=== PATIENT | male | born 1940 | race Caucasian/White ===

== ENCOUNTER 2020-08-26 10:16 | Outpatient (REF) | payer MEDICARE, SELFPAY ==
[2020-08-26 13:07] LABS: Hematocrit 35.5 % (42-52); Hemoglobin 11.2 g/dl (14.0-18.0); Mean Corpuscular HGB Conc 31.5 g/dl (31.0-36.0); Mean Corpuscular Hemoglobin 27.8 pg (27.0-33.0); Mean Corpuscular Volume 88.1 fL (80-98); Mean Platelet Volume 11.1 fL (9.4-12.4); Platelet Count 242 X10*3/uL (160-400); Red Blood Count 4.03 X10*6/uL (4.60-5.80); Red Cell Distribution Width 17.7 % (11.0-16.0); White Blood Count 4.7 X10*3/uL (4.8-10.8)
[2020-08-26 13:26] LABS: Alanine Aminotransferase 19 U/L (0-40); Albumin Level 4.5 g/dL (3.5-5.0); Alkaline Phosphatase 90 U/L (39-117); Anion Gap 10 (12-20); Aspartate Amino Transferase 18 U/L (5-37); Bilirubin Total 1.5 mg/dL (0.0-1.0); Blood Urea Nitrogen 14 mg/dL (9-16); Calcium 8.9 mg/dL (8.4-10.2); Carbon Dioxide 28 mmol/L (22-29); Chloride 105 mmol/L (96-108); Cholesterol 196 mg/dL; Estimated Glomerular Filt Rate > 60; Glucose Fasting 90 mg/dL (60-99); HDL Cholesterol 32 mg/dL; LDL Cholesterol Calculated 133 mg/dl; Potassium 4.4 mmol/L (3.3-5.1); Sodium 139 mmol/L (135-145); Total Protein 7.1 g/dL (6.5-8.0); Triglycerides 157 mg/dL
[2020-08-26 13:32] LABS: NRBC Pct Auto 2.5 /100WBC (0.0-0.2)
[2020-08-26 14:06] LABS: Band Neutrophils Percent 2 % (3-5); Basophils Percent Manual 1 % (0-1); Eosinophils Absolute Manual 0.2 X10*3/UL (0.0-0.8); Eosinophils Percent Manual 4 % (0-4); Lymphocytes Percent Manual 21 % (20-40); Metamyelocytes Absolute 0.1 X10*3/uL; Metamyelocytes Percent 2 %; Monocytes Absolute Manual 0.1 X10*3/uL (0.0-1.2); Monocytes Percent Manual 2 % (2-11); Neutrophils Absolute Manual 3.3 X10*3/uL (2.2-7.9); Neutrophils Percent Manual 68 % (45-73); Nucleated Red Blood Cells 3 /100WBC (0-0)
[2020-08-26 14:08] LABS: RBC Morphology NOTED
[2020-08-26 14:09] LABS: Hypochromasia 1+ (5-14) /OIF; Ovalocytes 2+ (15-30) /OIF; Platelet Estimate NORMAL (NORMAL); Platelet Morphology Comment NORMAL; Polychromasia 1+ (0-2) /OIF; Tear Drop Cells 1+ (0-2) /OIF
[2020-08-26 14:10] LABS: Estimated Average Glucose 100 mg/dL; Hemoglobin A1c % 5.1 %
== END 2020-08-26 10:17 | disposition home or self-care (01) ==
LOC: HO.MANLDS 10:16
PROVIDERS: PCP Internal Medicine; Visit Provider Physician Assistant
DX: I10 Essential (primary) hypertension (principal); E11.9 Type 2 diabetes mellitus without complications
CPT/HCPCS: 36415; 80053; 80061; 83036; 85007; 85025; 85027

== ENCOUNTER 2021-11-03 15:38 | Outpatient (REF) | payer MEDICARE, SELFPAY ==
[2021-11-03 17:59] LABS: Estimated Average Glucose 103 mg/dL; Hemoglobin A1c % 5.2 %
[2021-11-03 18:25] LABS: Alanine Aminotransferase 18 U/L (0-40); Albumin Level 4.5 g/dL (3.5-5.0); Alkaline Phosphatase 94 U/L (39-117); Anion Gap 12 (12-20); Aspartate Amino Transferase 17 U/L (5-37); Bilirubin Total 1.1 mg/dL (0.0-1.0); Blood Urea Nitrogen 13 mg/dL (9-16); Calcium 8.9 mg/dL (8.4-10.2); Carbon Dioxide 25 mmol/L (22-29); Chloride 104 mmol/L (96-108); Estimated Glomerular Filt Rate > 60; Glucose Random 86 mg/dL (60-115); Sodium 137 mmol/L (135-145)
== END 2021-11-03 15:39 | disposition home or self-care (01) ==
LOC: HO.MANLDS 15:38
PROVIDERS: Visit Provider Internal Medicine
DX: E11.9 Type 2 diabetes mellitus without complications (principal)
CPT/HCPCS: 36415; 80053; 83036

== ENCOUNTER 2022-06-17 10:24 | Outpatient (REF) | payer MEDICARE, SELFPAY ==
[2022-06-17 12:16] LABS: Estimated Average Glucose 103 mg/dL; Hemoglobin A1c % 5.2 %
== END 2022-06-17 10:25 | disposition home or self-care (01) ==
LOC: HO.MANLDS 10:24
PROVIDERS: Visit Provider Internal Medicine
DX: E11.9 Type 2 diabetes mellitus without complications (principal)
CPT/HCPCS: 36415; 83036

== ENCOUNTER 2023-05-25 10:51 | Outpatient (AMB) | payer MEDICARE, SELFPAY ==
--- NOTE | 2023-05-25 11:08 | A.OFFVIS_ITS ---
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 States symptoms have increased in the 6 months. States its worse at night time or with prolong bending of wrist. Denies previous injections. EMG done. States he is not sure if he would like to have surgery. 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 He complains of numbness in the thumb, index, and middle fingers of his left hand. Symptoms intermittent, but daily, worse at night, along with a burning sensation. He says he has some numbness in his right hand as well, but this is less bothersome. He has completed a NCS. He denies any prior treatment options, and says his symptoms have worsened in the last ~6 months. He is unsure if he would like to discuss surgery, [facility] Surgical History (Updated 05/25/23 @ 11:16 by MATTHEW Tate) Hx of tonsillectomy Social History (Updated 05/25/23 @ 11:16 by MATTHEW Tate) Current occupational status: retired and disabled Current occupation: rt hand Review of Systems Const All systems reviewed & are unremarkable except as noted in HPI and below Physical Exam Vital Signs: BMI result Body Mass Index 34.9 Const General: cooperative, healthy appearing and no acute distress Orientation/consciousness: patient oriented x3 HEENT Head: Yes normocephalic and Yes atraumatic Eyes EOM: EOMs intact bilaterally Resp Effort & Inspection: normal respiratory effort and able to speak in complete sentences Cardio Jugular venous distension: no JVD Skin General skin exam: turgor normal Rashes: no rashes Neuro General: patient oriented x3 Extrem Other: Evaluation of Bilateral Upper Extremity: The patient is alert, oriented, and in no acute distress Neuro: Not quite normal sensation i the median nerve distribution of his left hand today in clinic. Normal sensation in the ulnar nerve distribution No thenar or intrinsic wasting Good APB muscle belly firing and good finger cross Vascular: Cap refill brisk ROM: He can make a fist and extend all his digits No locking or catching Skin: No lacerations or abrasions. General: No Ecchymosis. No Erythema or evidence of infection. Nerve Conduction Study: Moderate-severe left carpal tunnel syndrome Mild right carpal tunnel syndrome Dr. Galdamez 03/10/23 Psych Appearance: grossly normal Affect: normal affect Attitude: cooperative Assessment & Plan Assessment & Plan (1) Carpal tunnel syndrome of left wrist: Code(s): G56.02 - Carpal tunnel syndrome, left upper limb (2) Carpal tunnel syndrome of right wrist: Code(s): G56.01 - Carpal tunnel syndrome, right upper limb Plan Assessment & Plan: 1. Left carpal tunnel syndrome, moderate-severe Symptoms intermittent, but daily, worse at night, some persistent numbness/pain I educated him about this condition I discussed operative and non-operative treatment options The patient would like to proceed with surgery The risks and benefits of operative treatment were discussed with the patient and the patient wishes to proceed with surgery. These risks include, but are not limited to risk of damage to blood vessels, nerves, tendons, infection, recurrence, incomplete relief of preoperative symptoms, persistent pain, possible need for further surgery and the risks associated with regional blocks and anesthesia. The plan is to take the patient to the operating room sometime in the next few weeks for the following procedures: 1. Left carpal tunnel release, under local All of the preoperative paperwork including the consent was reviewed today. All the patient's questions were answered. The patient understands that they will be contacted by our hot mill roller soon to schedule this procedure He denies Diabetes, blood thinners, asthma, heart, lung, kidney issues His incoming medical records list him as having Diabetes, but he is not taking any Diabetic medication 2. Right carpal tunnel syndrome, mild Symptoms intermittent & occasional We can discuss treatment when his left side has recovered Scribed for Beverly Rosas MD by Duane Talamantes medical administrative technician, on 05/25/23 at 11:30 AM, EST. Coding Level of Care Code New Pt Level 4 (14500) Diagnoses Carpal tunnel syndrome of left wrist G56.02 Carpal tunnel syndrome of right wrist G56.01
[2023-05-25 11:16] VITALS: BMI 34.9
== END 2023-05-25 11:34 | disposition home or self-care (01) ==
PROVIDERS: PCP Internal Medicine; Visit Provider Orthopaedic Surgery
DX: G56.03 Carpal tunnel syndrome, bilateral upper limbs (principal)
CPT/HCPCS: 99204

== ENCOUNTER → 2023-05-25 10:51 | Outpatient (BNVA) | payer MEDICARE, SELFPAY | PROVIDERS: PCP Internal Medicine; Visit Provider Orthopaedic Surgery | DX: G56.03 Carpal tunnel syndrome, bilateral upper limbs (principal) | CPT/HCPCS: 99202 ==

== ENCOUNTER 2023-07-26 07:19 | Day surgery (SDC) | payer MEDICARE, SELFPAY ==
[2023-07-26 08:31] VITALS: BMI 33.9
--- NOTE | 2023-07-26 09:03 | MHC.SHP ---
Pre-Procedural Eval Section A - 24 Hr Update-Section A only Date of Service: 07/26/23 The patient is an INPATIENT: No Changes since office visit: No Cold of Flu in the past 2 weeks, No New Medical Problems, No Changes in Medication and No Patient answered all questions The patient has been examined within 24 hours of the surgical procedure. The History & Physical has been completed within 30 days and I have reviewed it.: Yes Section B - Complete if H&P > 30 days Chief Complaint: Carpal tunnel syndrome, left upper limb Allergies: Allergies Allergy/AdvReac Type Severity Reaction Status Date / Time SEASONAL ALLERGIES Allergy Intermediate ITCHY EYES Uncoded 05/25/23 11:13 Exam Exam Comment: Left carpal tunnel syndrome Plan Diagnosis/Plan: Unchanged I have reviewed the history and physical and performed a pertinent physical examination on my patient. No changes have occurred unless specified. Time Spent With Patient Time: Total time managing care of this patient today ____ minutes.
--- NOTE | 2023-07-26 09:04 | W.PM.OPN ---
Operative Note Operative Note Date of Service: 07/26/23 Narrative: Preop diagnosis: 1. Left Carpal tunnel syndrome Postop diagnosis: same Procedure: 1. Left Carpal tunnel release Surgeon: Beverly Rosas MD Anesthesia: local block using 1% lidocaine with epinephrine Findings: Thickened transverse carpal ligament. EBL: Less than 5 mL Specimens: None Complications: None Disposition: Brought to recovery room in stable condition Plan: Follow-up for 10-14 days for wound check and suture removal Indications: The patient is 83 years old, with left carpal tunnel syndrome that has been unresponsive to nonoperative management. The risks and benefits of operative treatment including but not limited to risk of damage to blood vessels, nerves, tendons, infection, persistent pain, persistent symptoms, or possible need for additional surgery were discussed with the patient and the patient wishes to proceed with surgery. Procedure: Once consent was obtained a local block was performed using a combination of 1% lidocaine with epinephrine. The patient was then brought back to the operating suite and placed on the operative table in supine position. The left upper extremity was prepped and draped in a standard surgical fashion. Once assured that we had a good block, a 2.0 cm longitudinal incision was made centered over the carpal tunnel. The incision was made through the skin to the subcutaneous tissues using a #15 blade. Dissection was made down to the level of the transverse carpal ligament with care being taken to protect the palmar cutaneous nerve. Once the transverse carpal ligament was clearly visualized, a longitudinal incision was made in the transverse carpal ligament 1st using a #15 blade, then using tenotomy scissors under direct visualization. Care was taken to look for and protect the motor branch of the median nerve when seen in this area. Once satisfied with our carpal tunnel release the wound was copiously irrigated with normal saline and hemostasis was obtained with a brief period of local pressure. The skin edges were reapproximated with some 5.0 nylon suture material and a sterile dressing was applied. The patient appears to have tolerated the procedure well and with no complications. All digits were well vascularized at the conclusion of the case.
[2023-07-26 12:05] VITALS: BP 135/69; PULSE 82; RESP 18; O2SAT 97
== END 2023-07-26 12:07 | disposition home or self-care (01) ==
PROVIDERS: PCP Internal Medicine; Visit Provider Orthopaedic Surgery
PROC: (CPT 64721; principal; 2023-07-26 09:30)
DX: G56.02 Carpal tunnel syndrome, left upper limb (principal); R20.0 Anesthesia of skin; R20.2 Paresthesia of skin; E11.9 Type 2 diabetes mellitus without complications
CPT/HCPCS: 64721; J0171

== ENCOUNTER → 2023-07-26 07:19 | Outpatient (BNV) | payer MEDICARE, SELFPAY | PROVIDERS: PCP Internal Medicine; Visit Provider Orthopaedic Surgery | DX: G56.02 Carpal tunnel syndrome, left upper limb (principal) | CPT/HCPCS: 64721 ==

== ENCOUNTER 2023-08-10 13:04 | Outpatient (AMB) | payer MEDICARE, SELFPAY ==
[2023-08-10 13:24] VITALS: BMI 33.9
--- NOTE | 2023-08-10 13:24 | MHC.OFFVIS ---
Intake Vital Signs 08/10/23 13:24 Height 6 ft Weight 250 lb BMI 33.9 Intake Visit Reasons: PO-Lt CTR 07/26/23 Intake Note: Isaac 83 yr old male presents today for his post op visit for his CTR 07/26/23. States he continues to have numbness and tingling but is doing well. Sutures removed in office and steri strips applied. Allergies SEASONAL ALLERGIES Allergy (Intermediate, Uncoded 08/10/23 13:36) ITCHY EYES HPI PO-Lt CTR 07/26/23 HPI Details Isaac is an 83 year old right hand dominant man who presents S/P left carpal tunnel release, DOS: 07/26/23. He says he is doing well overall. He continues to have tingling or a prickly sensation in his fingers. [facility] Medical History (Updated 07/26/23 @ 08:32 by Faye Ortiz RN) HTN (hypertension) Surgical History H/O prostatectomy Hx of tonsillectomy Social History Current occupational status: retired and disabled Current occupation: rt hand Review of Systems Const All systems reviewed & are unremarkable except as noted in HPI and below Physical Exam Vital Signs: BMI result Body Mass Index 33.9 Const General: no acute distress and alert Orientation/consciousness: patient oriented x3 Neuro General: patient oriented x3 Extrem Other: The patient was alert oriented and in no acute distress He did seem a little confused about his symptoms today in clinic The incision is healing well with no erythema drainage or evidence of infection. Sutures removed and Steri-Strips applied He can make a fist and extend all his digits Sensation is not yet normal in the median nerve distribution, he says it feels prickly . Normal sensation in the ulnar nerve distribution Cap refill is brisk Nerve Conduction Study: Moderate-severe left carpal tunnel syndrome Mild right carpal tunnel syndrome Dr. Galdamez 03/10/23 Psych Appearance: grossly normal Affect: normal affect Attitude: cooperative Assessment & Plan Assessment & Plan (1) Carpal tunnel syndrome of left wrist: Code(s): G56.02 - Carpal tunnel syndrome, left upper limb (2) Carpal tunnel syndrome of right wrist: Code(s): G56.01 - Carpal tunnel syndrome, right upper limb Plan Assessment & Plan: 1. Left carpal tunnel syndrome, S/P release DOS: 07/26/23 Pre-operative symptoms intermittent, but daily, worse at night, some persistent numbness/pain Now with not normal sensation, which he describes as a prickly sensation The patient appears to be doing well post-operatively I educated him about the post-operative course I explained the signs and symptoms of infection, if the patient develops any new or worsening erythema, drainage, pain, or warmth they should contact the clinic or attend the ED. I discussed activity modifications, he is to lift nothing heavier than a cellphone for the next two weeks He will perform gentle ROM exercises at home He should avoid any underwater activities for the next 5 days He should gently massage about the incision site to reduce the risk of hypersensitivity He can follow up prn 2. Right carpal tunnel syndrome, mild Symptoms intermittent & occasional I educated him about this condition If his symptoms increase in frequency or severity he can follow up to discuss treatment options. He will follow up in a few months to see how he is doing Scribed for Beverly Rosas MD by Duane Talamantes, medical laboratory technicians, on 08/10/23 at 1:35 PM, EST. Coding Level of Care Code Global (18362) Diagnoses Carpal tunnel syndrome of left wrist G56.02 Carpal tunnel syndrome of right wrist G56.01
== END 2023-08-10 13:47 | disposition home or self-care (01) ==
PROVIDERS: PCP Internal Medicine; Visit Provider Orthopaedic Surgery
DX: G56.03 Carpal tunnel syndrome, bilateral upper limbs (principal)
CPT/HCPCS: 99024

== ENCOUNTER → 2023-08-10 13:04 | Outpatient (BNVA) | payer MEDICARE, SELFPAY | PROVIDERS: PCP Internal Medicine; Visit Provider Orthopaedic Surgery | DX: Z47.89 Encounter for other orthopedic aftercare (principal); G56.01 Carpal tunnel syndrome, right upper limb; Z86.69 Personal history of other diseases of the nervous system and sense organs | CPT/HCPCS: 99212 ==

== ENCOUNTER 2023-10-05 14:40 | Outpatient (REF) | payer MEDICARE, SELFPAY ==
[2023-10-05 18:24] LABS: Hematocrit 33.2 % (42.0-52.0); Hemoglobin 11.4 g/dl (14.0-18.0); Mean Corpuscular HGB Conc 34.3 g/dl (31.0-36.0); Mean Corpuscular Hemoglobin 30.2 pg (27.0-33.0); Mean Corpuscular Volume 87.8 fL (80.0-98.0); Mean Platelet Volume 10.1 fL (9.4-12.4); Platelet Count 275 X10*3/uL (160-400); Red Blood Count 3.78 X10*6/uL (4.60-5.80)
[2023-10-05 18:25] LABS: NRBC Pct Auto 2.8 /100WBC (0.0-0.2)
[2023-10-05 18:52] LABS: Alanine Aminotransferase 21 U/L (0-40); Albumin Level 4.4 g/dL (3.5-5.0); Alkaline Phosphatase 84 U/L (39-117); Anion Gap 15 (12-20); Aspartate Amino Transferase 22 U/L (5-37); Bilirubin Total 0.9 mg/dL (0.0-1.0); Blood Urea Nitrogen 14 mg/dL (9-16); C Reactive Protein 0.13 mg/dL (< or = 0.50); Calcium 9.4 mg/dL (8.4-10.2); Carbon Dioxide 22 mmol/L (22-29); Chloride 106 mmol/L (96-108); Erythrocyte Sedimentation Rate 10 MM/HR (0-15); Estimated Glomerular Filt Rate > 60; Glucose Random 95 mg/dL (60-115); Potassium 4.1 mmol/L (3.3-5.1); Sodium 139 mmol/L (135-145); Total Protein 7.3 g/dL (6.5-8.0)
[2023-10-05 19:05] LABS: Band Neutrophils Percent 4 % (3-5); Basophils Abs Manual 0.1 X10*3/uL (0.0-0.2); Basophils Percent Manual 1 % (0-2); Lymphocytes Absolute Manual 0.9 X10*3/uL (1.2-4.9); Lymphocytes Percent Manual 15 % (20-40); Metamyelocytes Absolute 0.2 X10*3/uL; Metamyelocytes Percent 4 %; Monocytes Absolute Manual 0.1 X10*3/uL (0.1-1.2); Monocytes Percent Manual 1 % (2-11); Myelocytes Absolute 0.1 X10*/uL; Myelocytes Percent 2 %; Neutrophils Absolute Manual 4.6 X10*3/uL (2.0-8.3); Neutrophils Percent Manual 72 % (45-73); Promyelocytes Absolute 0.1 X10*3/uL; Promyelocytes Percent 1 %
[2023-10-05 19:06] LABS: Platelet Estimate NORMAL (NORMAL); RBC Morphology NORMAL
[2023-10-05 19:07] LABS: Acanthocytes 1+ (0-2) /OIF; Nucleated Red Blood Cells 0 /100WBC (0-0); Ovalocytes 1+ (5-14) /OIF; Platelet Morphology Comment NORMAL; Schistocytes 1+ (0-2) /OIF; Tear Drop Cells 1+ (0-2) /OIF
== END 2023-10-05 14:41 | disposition home or self-care (01) ==
LOC: HO.MANLDS 14:40
PROVIDERS: Visit Provider Physician Assistant
DX: R60.0 Localized edema (principal)
CPT/HCPCS: 36415; 80053; 85007; 85027; 85652; 86140

== ENCOUNTER 2023-10-12 12:42 | Outpatient (AMB) | payer MEDICARE, SELFPAY ==
--- NOTE | 2023-10-12 12:49 | MHC.OFFVIS ---
Intake Visit Reasons: PO-Lt CTR 07/26/23 Intake Note: Isaac is a 83 year old right hand dominant male who presents today for a post op visit s/p left CTR 07/26/23 AR. Patient states his symptoms are better than before the surgery. He expresses still having a bit tingling in the thumb, IF, MF and RF. Allergies SEASONAL ALLERGIES Allergy (Intermediate, Uncoded 08/10/23 13:36) ITCHY EYES HPI HPI PO-Lt CTR 07/26/23: Details: 83-year-old right hand dominant male who presents in the office today 2 months status post left carpal tunnel release, which was performed on 07/26/[address] Rosas. The patient was last seen in the office on 08/10/[address] Rosas for his final postoperative appointment. While in the office today the patient reports his symptoms are better than before the surgery. However, he does report having ?a bit? of tingling in the left thumb, index, middle, and ring digits. Patient has a significant medial history of diabetes mellitus. [facility], [facility] Medical History (Updated 07/26/23 @ 08:32 by Faye Ortiz RN) HTN (hypertension) Surgical History H/O prostatectomy Hx of tonsillectomy Social History Current occupational status: retired and disabled Current occupation: rt hand Review of Systems Const All systems reviewed & are unremarkable except as noted in HPI and below Physical Exam Const General: cooperative, healthy appearing and no acute distress Resp Effort & Inspection: normal respiratory effort and able to speak in complete sentences Cardio Rate: regular rate Peripheral pulses: Peripheral pulses 2+ throughout GI Palpation (GI): Soft to palpation Skin Lesions: no lesions Rashes: no rashes Extrem Other: Left hand/wrist: Incision site is well healed and approximated. No ecchymosis, erythema, or edema. No signs of infection. Able to perform full finger flexion, extension, abduction, adduction, finger cross, okay sign, and thumbs up without deficit. Able to make a closed fist. Sensation intact. Capillary refill is brisk. Radial pulse intact. Assessment & Plan Assessment & Plan (1) Carpal tunnel syndrome of left wrist: Code(s): G56.02 - Carpal tunnel syndrome, left upper limb Category: Medical (2) Diabetes mellitus: Code(s): E11.9 - Type 2 diabetes mellitus without complications Category: Medical Plan Mr. Chau is an 83-year-old right hand dominant male who presents in the office today 2 months status post left carpal tunnel release, which was performed on 07/26/[address] Rosas. The patient was last seen in the office on 08/10/[address] Rosas for his final postoperative appointment. While in the office today the patient reports his symptoms are better than before the surgery. However, he does report having ?a bit? of tingling in the left thumb, index, middle, and ring digits. Patient has a significant medial history of diabetes mellitus. The patient may return to normal activities as tolerated. Follow-up will be PRN, or sooner if needed. Patient Instructions: Scribed by Destiny Hinds biomedical service engineer, for Quiana Rouse PA-C on 10/12/2023 at 12:43 pm, EST. Coding Level of Care Code Global (07128) Diagnoses Carpal tunnel syndrome of left wrist G56.02 Diabetes mellitus E11.9
== END 2023-10-12 13:03 | disposition home or self-care (01) ==
PROVIDERS: PCP Internal Medicine; Visit Provider Physician Assistant
DX: G56.02 Carpal tunnel syndrome, left upper limb (principal); E11.9 Type 2 diabetes mellitus without complications
CPT/HCPCS: 99024

== ENCOUNTER → 2023-10-12 12:42 | Outpatient (BNVA) | payer MEDICARE, SELFPAY | PROVIDERS: PCP Internal Medicine; Visit Provider Physician Assistant | DX: Z09 Encounter for follow-up examination after completed treatment for conditions other than malignant neoplasm (principal); Z86.69 Personal history of other diseases of the nervous system and sense organs | CPT/HCPCS: 99212 ==